=== PATIENT | male | born 1980 | race Two or more races ===

== ENCOUNTER 2019-07-27 06:14 | Emergency (ER) | payer OTHER ==
[~2019-07-27] VITALS: Ht 167.6 cm; Wt 69.9 kg
[2019-07-27 06:20] VITALS: Ht 167.6 cm; Wt 69.9 kg
[2019-07-27 06:56] VITALS: BP 138/65
== END 2019-07-27 06:56 | disposition home or self-care (01) ==
LOC: ED 06:14
DX: L03.113 Cellulitis of right upper limb (principal)
CPT/HCPCS: A4570